=== PATIENT | male | born 1995 | race Two or more races ===

== ENCOUNTER 2024-01-29 21:27 | Emergency (ER) | payer OTHER ==
[~2024-01-29] VITALS: Ht 182.9 cm; Wt 84.0 kg
[2024-01-29 21:30] VITALS: O2SAT 98
[2024-01-29] MEDS: ACETAMINOPHEN 325MG TABLET PO ONE (22:30)
[2024-01-29 23:30] VITALS: BP 129/75; PULSE 74; RESP 16; TEMP 37.11408; O2SAT 99
== END 2024-01-29 23:47 ==
LOC: ER 21:27 → EDBD 21:27 → ER 23:47
DX: S00.83XA Contusion of other part of head, initial encounter (principal); S60.819A Abrasion of unspecified wrist, initial encounter; X58.XXXA Exposure to other specified factors, initial encounter; Y93.89 Activity, other specified; Y92.89 Other specified places as the place of occurrence of the external cause; Y99.8 Other external cause status
CPT/HCPCS: 70450; 70486; 99284; Z7610